=== PATIENT | male | born 1985 | race Caucasian/White ===

== ENCOUNTER 2021-01-25 14:14 | Emergency (ER) | payer OTHER, SELFPAY ==
[2021-01-25] VITALS (7 sets, daily range): BP systolic 135–149; BP diastolic 79–95; PULSE 65–100; RESP 15–23; TEMP 36.1; O2SAT 97–100
--- NOTE | ~2021-01-25 | CT_ITS ---
EXAMINATION: CT abdomen pelvis w con DATE: 01/25/2021 16:16 INDICATION: Left lower quadrant abdominal pain TECHNIQUE: Computed tomography (CT) of the abdomen and pelvis was performed with 100 mL Omnipaque-350 intravenous contrast. Automated exposure control and iterative reconstruction technique were employe d. The dose-length product was 1377.67 mGy-cm. COMPARISON: None FINDINGS: Lower lungs are clear. Heart size is normal. No pericardial or pleural effusion. Liver, gallbladder, spleen, pancreas, bilateral adrenal glands and kidneys are normal. There are few scattered colonic di verticula without adjacent inflammatory change to suggest diverticulitis. No abnormal bowel wall thic kening or obstruction. Appendix is normal. Bladder is normal. No free intraperitoneal gas or fluid. M ildly prominent but still normal-sized mesenteric lymph nodes along the ileocolic chain which are lik arcadio reactive. No pathologically enlarged abdominal or pelvic lymphadenopathy. There are screw fixatio ns at the bilateral femoral heads which may be related to prior realignment osteotomies. Correlate wi th surgical history. Mild osteoarthritis at the bilateral hips. There are few small sclerotic bone is lands in the pelvis. IMPRESSION: 1. No acute intra-abdominal/pelvic process. Reviewed, dictated and finalized at location A.
[2021-01-25 14:42] LABS: Basophils Percent Auto 0.5 % (0.2-1.2); Eosinophils Absolute Auto 0.4 K/mm3 (0-0.3); Eosinophils Percent Auto 4.6 % (0-4.4); Hematocrit 42.7 % (42.0-52.0); Hemoglobin 14.8 g/dL (14.0-18.0); Immature Granulocyte Absolute 0.02 K/mm3 (0.00-0.031); Immature Granulocyte Percent A 0.3 % (0-0.5); Lymphocytes Percent Auto 17.5 % (18.3-44.2); Mean Corpuscular HGB Conc 34.7 g/dl (32-36); Mean Corpuscular Hemoglobin 28.8 pg (26-34); Mean Corpuscular Volume 83.2 fl (80-100); Monocytes Absolute Auto 0.7 K/mm3 (0.1-0.6); Monocytes Percent Auto 8.9 % (2.6-8.5); Neutrophils Absolute Auto 5.5 K/mm3 (1.3-6.7); Neutrophils Percent Auto 68.2 % (45.5-73.1); Platelet Count Result 212 k/mm3 (150-375); Red Blood Count 5.13 M/mm3 (4.6-6.20); Red Cell Distribution Width 11.9 % (11.5-14.5)
[2021-01-25 14:44] LABS: Add Urine Microscopic? NO; Appearance Urine Clear (Clear); Bilirubin Urine Negative (Negative); Blood Urine Negative (Negative); Color Urine Straw (Yellow); Glucose Urine UA Negative (Negative); Ketones Urine Negative (Negative); Leukocyte Esterase Ur Negative LEU/UL (Negative); Nitrate Urine Negative (Negative); Protein Urine Negative (Negative); Specific Grav Ur 1.005 (1.001-1.035); Urobilinogen Urine Negative mg/dL (<2.0)
[2021-01-25 14:50] LABS: Alanine Aminotransferase 33 U/L (4-50); Albumin Level 4.4 g/dL (3.5-5.1); Alkaline Phosphatase 66 U/L (38-126); Anion Gap 7 mmol/L (8-16); Aspartate Amino Transferase 37 U/L (17-59); Bilirubin,Total 1.2 mg/dL (0.2-1.3); Blood Urea Nitrogen 9 mg/dL (9-20); Calcium 9.3 mg/dL (8.4-10.2); Carbon Dioxide 28 mmol/L (22-30); Chloride 105 mmol/L (98-107); Estimated CRCL calculation 150 ml/min; Estimated Glomerular Filt Rate > 60; Glucose 89 mg/dL (75-110); Lipase 117 U/L (23-300); Potassium 3.9 mmol/L (3.4-5.0); Sodium 140 mmol/L (137-145)
--- NOTE | 2021-01-25 15:21 | ECG_ITS ---
Measurements Intervals [place] Rate: 75 P: 38 VA: 159 QRS: 38 QRSD: 90 T: 4 QT: 355 QTc: 399 Interpretive Statements SINUS RHYTHM NONSPECIFIC T-WAVE ABNORMALITY- INFERIOR LEADS BASELINE ARTIFACT- I, III, AVL BORDERLINE ECG Electronically Signed On 01-25-2021 16:00:14 CDT by Aidan Lockhart D.O.
--- NOTE | 2021-01-25 15:42 | ED.ABDPAIN ---
HPI - Abdominal Pain General Chief Complaint: Abdominal Pain Stated Complaint: L sided abd pain Time Seen by Provider: 01/25/21 15:15 Source: RN notes reviewed History of Present Illness HPI narrative: Patient presents to emergency department from home for abdominal pain. Patient states that the pain began earlier today the pain is located in the left upper quadrant nares in the left lower quadrant described as cramping in nature and is intermittent. He states he currently has no pain denies any fevers or chills chest pain shortness of breath nausea vomiting diarrhea or any other symptoms patient states he taken nothing for the symptoms Related Data Home Medications Medication Instructions Recorded Confirmed baclofen mg 01/25/21 escitalopram oxalate [Lexapro] 20 mg PO DAILY 01/25/21 gabapentin PO 01/25/21 Allergies Allergy/AdvReac Type Severity Reaction Status Date / Time No Known Allergies Allergy Verified 01/25/21 14:26 Review of Systems Review of Systems: Narrative: Gen.: Denies fevers or chills ENT: Denies congestion Respiratory: Denies shortness of breath or cough CV: Denies chest pain or palpitations GI: Reports abdominal pain. Denies nausea, emesis or diarrhea denies burning, urgency, frequency or hematuria Musculoskeletal: Denies back pain or muscle pain Neuro: Denies numbness, tingling, weakness or focal weakness Skin: Denies rash Except as documented, all other systems reviewed and negative FORMERLY [facility] Past Medical History Medical History (Updated 01/25/21 @ 18:44 by Alexis Ventura DO) Patient denies significant medical history Social History Social History (Updated 01/25/21 @ 18:42 by Alexis Ventura DO) Smoking status: Never smoker Exam Narrative: Exam Narrative: APPEARANCE: No acute distress, nontoxic, resting in bed HEENT: Normocephalic, atraumatic, OMM RESPIRATORY: No respiratory distress, clear to auscultation bilaterally with no rhonchi wheezing or rales CARDIOVASCULAR: RRR s murmur ABDOMINAL: Soft nondistended tender palpation left upper quadrant left lower quadrant no tenderness in right upper quadrant right lower quadrant no rebound or guarding MUSCULOSKELETAl: Moves all extremities. No clubbing, cyanosis or edema. NEURO: Awake and alert. Following commands, speech normal, no focal deficits SKIN:: Warm, dry. Normal Color PSYCHIATRIC: Normal affect/mood Course Course Emergency Course: Patient had some return of symptoms with improvement with GI cocktail patient states he has been having some issues with heartburn over the past month Patient states that they are feeling much better at this time. States abdominal pain has resolved. Repeat abdominal exam shows the patient's abdomen to be soft and nontender. Discussed with patient results of workup and diagnosis. Discussed need for follow-up with primary care physician, reasons to return to the emergency department in proper use of medication. Patient understands and agrees to current treatment plan Vital Signs Vital signs: Vital Signs Temperature 97.0 F L 01/25/21 14:24 Pulse Rate 100 01/25/21 14:24 Respiratory Rate 18 01/25/21 14:24 Blood Pressure 148/79 H 01/25/21 14:24 Pulse Oximetry 99 01/25/21 14:24 Temperature 97.0 F L 01/25/21 14:24 Pulse Rate 69 01/25/21 18:37 Respiratory Rate 15 01/25/21 18:37 Blood Pressure 144/95 H 01/25/21 18:37 Pulse Oximetry 98 01/25/21 18:37 MDM - Abdominal Pain MDM Narrative Medical decision making narrative: Patient's abdomen is soft without significant pain or signs of surgical abdomen on serial exams. Lab and x-ray evaluations are reviewed and patient is felt to be a reasonable candidate for outpatient management. Patient was instructed as to limitations of x-ray and laboratory evaluation and encouraged to return to ED or primary physician for repeat exam in 12 hours if continued or worsening pain. The patient has had tenderness in his abdomen I did obtain
[2021-01-25 17:59] LABS: Troponin I < 0.012 ng/mL (0.000-0.034)
== END 2021-01-25 19:02 | disposition home or self-care (01) ==
PROVIDERS: Emergency Medicine; Emergency Provider Emergency Medicine
DX: R10.11 Right upper quadrant pain (principal)
CPT/HCPCS: 36415; 74177; 80053; 81003; 83690; 84484; 85025; 93005; 99284; A9270; Q9967